=== PATIENT | female | born 1950 | race Caucasian/White ===

== ENCOUNTER 2021-09-21 19:59 | Inpatient (IN) | payer MEDICARE ==
[2021-09-21 20:18] VITALS: BMI 35.8
[2021-09-21] MEDS ORDERED: Loperamide HCl 2 MG CAP PO PRN ×2 (21:23)
[2021-09-21] MEDS ORDERED: Ondansetron PF 4 MG/2 ML Vial IVP PRN (21:23)
[2021-09-21] MEDS ORDERED: Acetaminophen 650 MG Suppository PR PRN (21:23)
[2021-09-21] MEDS ORDERED: Acetaminophen 325 MG TAB PO PRN (21:23)
[2021-09-21] MEDS ORDERED: Ondansetron ODT 4 MG TAB PO PRN (21:23)
[2021-09-21] MEDS ORDERED: HumaLOG 300 UNITS/3 ML VIAL SC PRN (21:27)
[2021-09-21] MEDS ORDERED: Dextrose 5% in Water 1,000 ML IV PRN (21:27)
[2021-09-21] MEDS ORDERED: Dextrose 50% Abboject 50 ML SYRINGE SLOW IVP PRN (21:27)
[2021-09-21] MEDS ORDERED: Apixaban 5 MG TAB PO SCH (21:45)
[2021-09-21] MEDS ORDERED: Famotidine 20 MG TAB PO SCH (21:45)
[2021-09-22] MEDS ORDERED: Diltiazem 125 MG in Sodium Chloride 0.9% 100 ML IVPB SCH (02:30)
[2021-09-22 05:12] LABS: Hemoglobin 15.3 g/dL (12.0-15.5); Mean Corpuscular HGB CONC 33.3 g/dL (32.0-36.0); Mean Corpuscular Hemoglobin 30.8 pg (27.0-33.0); Mean Corpuscular Volume 92.5 fl (81.6-98.3); Mean Platelet Volume 10.4 fl (7.4-10.4); Platelet Count 224 10x3/uL (150-450); RBC Distribution Width 13.3 % (11.5-14.5); Red Blood Cell (RBC) Count 4.96 10x6/uL (3.90-5.03); White Blood Cell (WBC) Count 6.6 10x3/uL (3.5-10.5)
[2021-09-22 05:23] LABS: MDiff Complete? YES
[2021-09-22 05:27] LABS: ALT (SGPT) 19 U/L (8-55); AST (SGOT) 20 U/L (5-34); Albumin 3.9 g/dL (3.4-4.8); Alkaline Phosphatase 46 U/L (40-110); Anion Gap 15 mmol/L (10-20); BUN (Urea Nitrogen) 25 mg/dL (9.8-20.1); Bilirubin, Total 0.3 mg/dL (0.2-1.2); Calc. Creatinine Clearance 83 mL/min (70-130); Calcium 8.6 mg/dL (7.8-10.44); Carbon Dioxide 22 mmol/L (23-31); Chloride 107 mmol/L (98-107); Globulin 2.6 g/dL (2.4-3.5); Glucose 119 mg/dL (80-115); Potassium 4.4 mmol/L (3.5-5.1); Protein, Total 6.5 g/dL (5.8-8.1); Sodium 140 mmol/L (136-145)
[2021-09-22 05:34] LABS: Band 2 % (5-11); Eosinophils 4 % (0-10); Lymphocytes 11 % (21-51); Monocytes 10 % (0-10); Neutrophil 65 % (42-75); Reactive Lymphocytes 7 % (0-10)
[2021-09-22 05:35] LABS: Platelet Morphology Comment Appears Adequate
[2021-09-22 05:36] LABS: RBC Morphology Normal
[2021-09-22] MEDS: Apixaban 5 MG TAB PO SCH ×2 (09:21→21:18)
[2021-09-22] MEDS: Famotidine 20 MG TAB PO SCH ×2 (09:21→21:19)
[2021-09-22] MEDS ORDERED: Flecainide 50 MG TAB PO SCH (12:00)
[2021-09-22] MEDS: Carvedilol 12.5 MG TAB PO SCH (17:26)
[2021-09-22] MEDS: metFORMIN 500 MG TAB PO SCH (17:26)
[2021-09-22] MEDS: Flecainide 50 MG TAB PO SCH (21:19)
[2021-09-22] MEDS: Hydroxychloroquine Sulfate 200 MG TAB PO SCH (21:19)
[2021-09-22] MEDS: Simvastatin 10 MG TAB PO SCH (21:19)
[2021-09-23 05:05] LABS: Anion Gap 13 mmol/L (10-20); BUN (Urea Nitrogen) 22 mg/dL (9.8-20.1); Calc. Creatinine Clearance 105 mL/min (70-130); Calcium 8.6 mg/dL (7.8-10.44); Carbon Dioxide 23 mmol/L (23-31); Chloride 107 mmol/L (98-107); Glucose 130 mg/dL (80-115); Magnesium 2.2 mg/dL (1.6-2.6); Potassium 4.1 mmol/L (3.5-5.1); Sodium 139 mmol/L (136-145)
[2021-09-23 05:09] LABS: #Basophils 0.1 10x3/uL (0.0-0.2); #Eosinphils 0.2 10x3/uL (0.0-0.5); #Monocytes 0.8 10x3/uL (0.0-1.1); #Neutrophils 2.6 10x3/uL (1.5-8.4); %Basophils 1.8 % (0.0-2.0); %Eosinophils 3.6 % (0.0-6.0); %Lymphocytes 19.6 % (18.0-47.0); %Monocytes 16.7 % (0.0-10.0); %Neutrophils 57.9 % (40.0-75.0); Hemoglobin 15.3 g/dL (12.0-15.5); Mean Corpuscular Hemoglobin 30.8 pg (27.0-33.0); Mean Corpuscular Volume 93.4 fl (81.6-98.3); Mean Platelet Volume 10.6 fl (7.4-10.4); Platelet Count 201 10x3/uL (150-450); RBC Distribution Width 13.2 % (11.5-14.5); Red Blood Cell (RBC) Count 4.97 10x6/uL (3.90-5.03); White Blood Cell (WBC) Count 4.5 10x3/uL (3.5-10.5)
[2021-09-23] MEDS: Levothyroxine Sodium 75 MCG TAB PO SCH (06:12)
[2021-09-23] MEDS: Levothyroxine Sodium 100 MCG TAB PO SCH (06:12)
[2021-09-23] MEDS: azaTHIOprine 50 MG TAB PO SCH (09:10)
[2021-09-23] MEDS: Apixaban 5 MG TAB PO SCH ×2 (09:17→22:08)
[2021-09-23] MEDS: Famotidine 20 MG TAB PO SCH ×2 (09:17→22:09)
[2021-09-23] MEDS: metFORMIN 500 MG TAB PO SCH ×2 (09:17→18:00)
[2021-09-23] MEDS: Carvedilol 12.5 MG TAB PO SCH ×2 (09:17→18:00)
[2021-09-23] MEDS: Empagliflozin 10 MG TAB PO SCH (09:18)
[2021-09-23] MEDS: Flecainide 50 MG TAB PO SCH ×2 (09:18→22:09)
[2021-09-23] MEDS: Hydroxychloroquine Sulfate 200 MG TAB PO SCH ×2 (09:18→22:09)
[2021-09-23] MEDS: Simvastatin 10 MG TAB PO SCH (22:09)
[2021-09-24 05:49] LABS: #Basophils 0.1 10x3/uL (0.0-0.2); #Eosinphils 0.2 10x3/uL (0.0-0.5); #Monocytes 0.8 10x3/uL (0.0-1.1); #Neutrophils 2.6 10x3/uL (1.5-8.4); %Basophils 1.7 % (0.0-2.0); %Eosinophils 4.6 % (0.0-6.0); %Lymphocytes 22.1 % (18.0-47.0); %Monocytes 16.4 % (0.0-10.0); %Neutrophils 54.6 % (40.0-75.0); Hemoglobin 14.8 g/dL (12.0-15.5); Mean Corpuscular HGB CONC 32.2 g/dL (32.0-36.0); Mean Corpuscular Hemoglobin 30.4 pg (27.0-33.0); Mean Corpuscular Volume 94.3 fl (81.6-98.3); Mean Platelet Volume 10.5 fl (7.4-10.4); Platelet Count 197 10x3/uL (150-450); Red Blood Cell (RBC) Count 4.87 10x6/uL (3.90-5.03); White Blood Cell (WBC) Count 4.8 10x3/uL (3.5-10.5)
[2021-09-24 05:58] LABS: Anion Gap 11 mmol/L (10-20); BUN (Urea Nitrogen) 24 mg/dL (9.8-20.1); Calc. Creatinine Clearance 82 mL/min (70-130); Calcium 8.5 mg/dL (7.8-10.44); Carbon Dioxide 23 mmol/L (23-31); Chloride 109 mmol/L (98-107); Glucose 129 mg/dL (80-115); Magnesium 2.1 mg/dL (1.6-2.6); Potassium 4.4 mmol/L (3.5-5.1); Sodium 139 mmol/L (136-145)
[2021-09-24] MEDS: Levothyroxine Sodium 75 MCG TAB PO SCH (06:14)
[2021-09-24] MEDS: Levothyroxine Sodium 100 MCG TAB PO SCH (06:14)
[2021-09-24] MEDS: Apixaban 5 MG TAB PO SCH (08:25)
[2021-09-24] MEDS: azaTHIOprine 50 MG TAB PO SCH (08:26)
[2021-09-24] MEDS: Carvedilol 12.5 MG TAB PO SCH (08:26)
[2021-09-24] MEDS: metFORMIN 500 MG TAB PO SCH ×2 (08:27→18:00)
[2021-09-24] MEDS: Famotidine 20 MG TAB PO SCH (08:27)
[2021-09-24] MEDS: Flecainide 50 MG TAB PO SCH (08:27)
[2021-09-24] MEDS: Empagliflozin 10 MG TAB PO SCH (08:27)
[2021-09-24] MEDS: Hydroxychloroquine Sulfate 200 MG TAB PO SCH (08:27)
[2021-09-24] MEDS ORDERED: Carvedilol 12.5 MG TAB PO SCH ×2 (12:00→17:00)
[2021-09-24 20:40] VITALS: BP 121/76; TEMP 97.4
== END 2021-09-24 18:00 | disposition home or self-care (01) | DRG 309 ==
LOC: INTOOBSV 19:59 → UNDOADMOB 19:59 → CSHTELE 19:59 → OBSVTOIN 19:59 → CSHTELE 09-22 12:28 → INTOOBSV 09-22 12:28 → OBSVTOIN 09-22 12:28
PROVIDERS: ADMIT Family Medicine; ATTEND Nurse Practitioner Family
DX: I48.91 Unspecified atrial fibrillation (principal); I50.32 Chronic diastolic (congestive) heart failure; M33.90 Dermatopolymyositis, unspecified, organ involvement unspecified; I13.0 Hypertensive heart and chronic kidney disease with heart failure and stage 1 through stage 4 chronic kidney disease, or unspecified chronic kidney disease; E03.9 Hypothyroidism, unspecified; M19.90 Unspecified osteoarthritis, unspecified site; I25.118 Atherosclerotic heart disease of native coronary artery with other forms of angina pectoris; E78.2 Mixed hyperlipidemia; E11.22 Type 2 diabetes mellitus with diabetic chronic kidney disease; N18.2 Chronic kidney disease, stage 2 (mild); Z95.5 Presence of coronary angioplasty implant and graft; Z79.82 Long term (current) use of aspirin; Z79.02 Long term (current) use of antithrombotics/antiplatelets; Z79.84 Long term (current) use of oral hypoglycemic drugs; Z79.899 Other long term (current) drug therapy; Z88.0 Allergy status to penicillin; Z98.890 Other specified postprocedural states
CPT/HCPCS: 36415; 36416; 80048; 80053; 83735; 85025; 93005; 93010; 96374; G0378; J3490; J7500

== ENCOUNTER 2021-11-02 09:27 | Outpatient (CLI) | payer MEDICARE ==
[2021-11-02 10:39] LABS: Hemoglobin 14.3 g/dL (12.0-15.5); Mean Corpuscular HGB CONC 31.8 g/dL (32.0-36.0); Mean Corpuscular Hemoglobin 30.6 pg (27.0-33.0); Mean Corpuscular Volume 96.1 fl (81.6-98.3); Mean Platelet Volume 11.4 fl (7.4-10.4); Platelet Count 206 10x3/uL (150-450); RBC Distribution Width 14.5 % (11.5-14.5); Red Blood Cell (RBC) Count 4.67 10x6/uL (3.90-5.03); White Blood Cell (WBC) Count 4.5 10x3/uL (3.5-10.5)
[2021-11-02 10:58] LABS: PTT 32.2 sec (22.0-33.0); Prothrombin Time 11.1 sec (9.5-12.1)
[2021-11-02 11:15] LABS: ALT (SGPT) 8 U/L (8-55); AST (SGOT) 16 U/L (5-34); Albumin 4.1 g/dL (3.4-4.8); Alkaline Phosphatase 49 U/L (40-110); Anion Gap 15 mmol/L (10-20); BUN (Urea Nitrogen) 17 mg/dL (9.8-20.1); Bilirubin, Total 0.6 mg/dL (0.2-1.2); Calc. Creatinine Clearance 0 mL/min (70-130); Calcium 9.3 mg/dL (7.8-10.44); Carbon Dioxide 24 mmol/L (23-31); Chloride 107 mmol/L (98-107); Globulin 2.5 g/dL (2.4-3.5); Glucose 102 mg/dL (80-115); Magnesium 2.1 mg/dL (1.6-2.6); Potassium 4.9 mmol/L (3.5-5.1); Protein, Total 6.6 g/dL (5.8-8.1); Sodium 141 mmol/L (136-145)
[2021-11-03 12:47] LABS: SARS-CoV-2 PCR by NAA Not Detected (NotDetected)
== END 2021-11-02 09:28 | disposition home or self-care (01) ==
LOC: CSHLAB 09:27
PROVIDERS: ATTEND Specialist
DX: Z01.812 Encounter for preprocedural laboratory examination (principal); Z20.822 Contact with and (suspected) exposure to COVID-19; I48.91 Unspecified atrial fibrillation
CPT/HCPCS: 80053; 83735; 85027; 85610; 85730; U0003; U0005

== ENCOUNTER → 2021-11-05 | Day surgery (SDC) | payer MEDICARE ==
[~2021-11-05] MED LIST: PROPOFOL 20 ML ONE
== END ==
LOC: CSHSDC 09:37
PROVIDERS: ATTEND Specialist
DX: I48.0 Paroxysmal atrial fibrillation (principal); I25.10 Atherosclerotic heart disease of native coronary artery without angina pectoris; E78.2 Mixed hyperlipidemia; E11.9 Type 2 diabetes mellitus without complications; I11.0 Hypertensive heart disease with heart failure; I50.32 Chronic diastolic (congestive) heart failure; Z79.899 Other long term (current) drug therapy; Z79.01 Long term (current) use of anticoagulants; E03.9 Hypothyroidism, unspecified; Z86.19 Personal history of other infectious and parasitic diseases; Z79.84 Long term (current) use of oral hypoglycemic drugs; Z79.82 Long term (current) use of aspirin
CPT/HCPCS: 92960; 93005; 93010; J2704

== ENCOUNTER 2021-11-09 21:25 | Emergency (ER) | payer MEDICARE ==
[2021-11-09 22:17] LABS: #Eosinphils 0.1 10x3/uL (0.0-0.5); #Monocytes 0.6 10x3/uL (0.0-1.1); #Neutrophils 2.7 10x3/uL (1.5-8.4); %Eosinophils 2.2 % (0.0-6.0); %Lymphocytes 15.8 % (18.0-47.0); %Monocytes 14.3 % (0.0-10.0); %Neutrophils 66.2 % (40.0-75.0); Hemoglobin 13.4 g/dL (12.0-15.5); Mean Corpuscular HGB CONC 31.8 g/dL (32.0-36.0); Mean Corpuscular Volume 94.2 fl (81.6-98.3); Platelet Count 185 10x3/uL (150-450); RBC Distribution Width 14.4 % (11.5-14.5); Red Blood Cell (RBC) Count 4.47 10x6/uL (3.90-5.03); White Blood Cell (WBC) Count 4.1 10x3/uL (3.5-10.5)
[2021-11-09 22:30] LABS: ALT (SGPT) 8 U/L (8-55); AST (SGOT) 16 U/L (5-34); Albumin 4.2 g/dL (3.4-4.8); Alkaline Phosphatase 61 U/L (40-110); Anion Gap 14 mmol/L (10-20); BUN (Urea Nitrogen) 15 mg/dL (9.8-20.1); Bilirubin, Total 0.4 mg/dL (0.2-1.2); Calc. Creatinine Clearance 0 mL/min (70-130); Calcium 9.3 mg/dL (7.8-10.44); Carbon Dioxide 24 mmol/L (23-31); Chloride 108 mmol/L (98-107); Globulin 2.7 g/dL (2.4-3.5); Glucose 142 mg/dL (80-115); Potassium 4.2 mmol/L (3.5-5.1); Protein, Total 6.9 g/dL (5.8-8.1); Sodium 142 mmol/L (136-145)
== END 2021-11-09 23:10 | disposition home or self-care (01) ==
LOC: CSHERS 21:25
DX: R00.2 Palpitations (principal); R06.00 Dyspnea, unspecified; I44.0 Atrioventricular block, first degree; I10 Essential (primary) hypertension; E11.9 Type 2 diabetes mellitus without complications; I48.91 Unspecified atrial fibrillation; E03.9 Hypothyroidism, unspecified; Z79.01 Long term (current) use of anticoagulants; Z79.84 Long term (current) use of oral hypoglycemic drugs; Z79.890 Hormone replacement therapy; Z79.899 Other long term (current) drug therapy
CPT/HCPCS: 71045; 80053; 83880; 84484; 85025; 93005

== ENCOUNTER 2022-03-28 10:52 | Outpatient (CLI) | payer MEDICARE ==
[2022-03-28 13:22] LABS: Hemoglobin 14.2 g/dL (12.0-15.5); Mean Corpuscular HGB CONC 32.9 g/dL (32.0-36.0); Mean Corpuscular Hemoglobin 31.3 pg (27.0-33.0); Mean Corpuscular Volume 95.1 fl (81.6-98.3); Mean Platelet Volume 11.3 fl (7.4-10.4); Platelet Count 201 10x3/uL (150-450); Red Blood Cell (RBC) Count 4.53 10x6/uL (3.90-5.03); White Blood Cell (WBC) Count 4.1 10x3/uL (3.5-10.5)
[2022-03-28 13:31] LABS: Anion Gap 16 mmol/L (10-20); BUN (Urea Nitrogen) 15 mg/dL (9.8-20.1); Calc. Creatinine Clearance 0 mL/min (70-130); Calcium 9.4 mg/dL (7.8-10.44); Carbon Dioxide 24 mmol/L (23-31); Chloride 105 mmol/L (98-107); Glucose 107 mg/dL (80-115); Potassium 4.9 mmol/L (3.5-5.1); Sodium 140 mmol/L (136-145)
== END 2022-03-28 10:53 | disposition home or self-care (01) ==
LOC: CSHLAB 10:52
PROVIDERS: ATTEND Surgery
DX: Z01.818 Encounter for other preprocedural examination (principal); Z20.822 Contact with and (suspected) exposure to COVID-19; K60.3 Anal fistula
CPT/HCPCS: 80048; 85027; 93005; 93010; U0003; U0005

== ENCOUNTER 2022-03-31 09:08 | Day surgery (SDC) | payer MEDICARE ==
[2022-03-28 14:57] VITALS: BMI 36.8
[~2022-03-31 09:08] MED LIST changes: +Bupivacaine PF 0.5% 30 ML VIAL ONE; +EPINEPHrine 1 MG/ML AMP ONE; +Lidocaine 2% Jelly 5 ML TUBE ONE; +Lidocaine 4% PF 5 ML AMP ONE; -PROPOFOL 20 ML ONE
[2022-03-31] MEDS ORDERED: Clindamycin/D5W 600 MG in Premix Bag 1 BAG IVPB SCH (09:30)
[2022-03-31] MEDS ORDERED: Lidocaine 1% MPF 2 ML VIAL ONE (09:38)
[2022-03-31] MEDS ORDERED: PROPOFOL 20 ML ONE (10:14)
[2022-03-31] MEDS ORDERED: Dexamethasone 4 mg/ml Vial ONE (10:15)
[2022-03-31] MEDS ORDERED: Ondansetron PF 4 MG/2 ML Vial ONE (10:15)
[2022-03-31] MEDS ORDERED: Lidocaine 1% PF 5 ML VIAL ONE (10:15)
[2022-03-31] MEDS ORDERED: HYDROcodone/Acetaminophen 5/325 mg Tablet PO PRN (10:27)
[2022-03-31] MEDS ORDERED: Acetaminophen 325 MG TAB PO PRN (10:27)
[2022-03-31] MEDS ORDERED: Fentanyl 100 MCG/2 ML VIAL ONE (10:32)
== END 2022-03-31 13:00 | disposition home or self-care (01) ==
LOC: CSHSDC 09:08
PROVIDERS: ATTEND Surgery
PROC: 0DBQ7ZZ Excision of Anus, Via Natural or Artificial Opening (ICD-10-PCS; principal; 2022-03-31)
DX: K60.3 Anal fistula (principal); N81.6 Rectocele; Z79.84 Long term (current) use of oral hypoglycemic drugs; Z79.890 Hormone replacement therapy; Z79.899 Other long term (current) drug therapy; Z88.0 Allergy status to penicillin; Z88.8 Allergy status to other drugs, medicaments and biological substances
CPT/HCPCS: J0171; J1100; J2405; J2704; J3010; J3490; S0020

== ENCOUNTER 2022-10-14 18:28 | Emergency (ER) | payer MEDICARE ==
[~2022-10-14 18:28] MED LIST changes: -Bupivacaine PF 0.5% 30 ML VIAL ONE; -EPINEPHrine 1 MG/ML AMP ONE; +Iopamidol 370 76% 100 ML VIAL ONE; -Lidocaine 2% Jelly 5 ML TUBE ONE; -Lidocaine 4% PF 5 ML AMP ONE
[2022-10-14 19:38] LABS: #Basophils 0.1 10x3/uL (0.0-0.2); #Eosinphils 0.1 10x3/uL (0.0-0.5); #Monocytes 0.7 10x3/uL (0.0-1.1); %Basophils 1.1 % (0.0-2.0); %Eosinophils 2.8 % (0.0-6.0); %Lymphocytes 15.8 % (18.0-47.0); %Neutrophils 65.4 % (40.0-75.0); Hemoglobin 14.3 g/dL (12.0-15.5); Mean Corpuscular HGB CONC 34.6 g/dL (32.0-36.0); Mean Corpuscular Hemoglobin 31.4 pg (27.0-33.0); Mean Corpuscular Volume 90.6 fl (81.6-98.3); Mean Platelet Volume 10.6 fl (7.4-10.4); Platelet Count 194 10x3/uL (150-450); RBC Distribution Width 13.6 % (11.5-14.5); Red Blood Cell (RBC) Count 4.56 10x6/uL (3.90-5.03); White Blood Cell (WBC) Count 4.6 10x3/uL (3.5-10.5)
[2022-10-14] MEDS ORDERED: Famotidine/PF 20 mg/2ml Vial ONE (19:39)
[2022-10-14] MEDS ORDERED: methylPREDNISolone Sod Succ/PF 125 MG/2 ML VIAL ONE (19:39)
[2022-10-14] MEDS ORDERED: diphenhydrAMINE 50 MG/ML VIAL ONE (19:39)
[2022-10-14 19:51] LABS: ALT (SGPT) 11 U/L (8-55); AST (SGOT) 20 U/L (5-34); Albumin 4.3 g/dL (3.4-4.8); Alkaline Phosphatase 53 U/L (40-110); Anion Gap 14 mmol/L (10-20); BUN (Urea Nitrogen) 15 mg/dL (9.8-20.1); Bilirubin, Total 0.9 mg/dL (0.2-1.2); Calc. Creatinine Clearance 0 mL/min (70-130); Calcium 9.1 mg/dL (7.8-10.44); Carbon Dioxide 21 mmol/L (23-31); Chloride 106 mmol/L (98-107); Estimated GFR 72; Globulin 2.5 g/dL (2.4-3.5); Glucose 103 mg/dL (83-110); Potassium 4.2 mmol/L (3.5-5.1); Protein, Total 6.8 g/dL (5.8-8.1); Sodium 137 mmol/L (136-145)
== END 2022-10-14 22:11 | disposition home or self-care (01) ==
LOC: CSHERS 18:28
DX: I10 Essential (primary) hypertension (principal); E03.9 Hypothyroidism, unspecified; E11.9 Type 2 diabetes mellitus without complications
CPT/HCPCS: 71045; 71275; 80053; 83880; 84484; 85025; 93005; 96374; 96375; J1200; J2930; S0028

== ENCOUNTER 2022-10-16 18:51 | Inpatient (IN) | payer MEDICARE ==
[2022-10-16 19:36] LABS: #Basophils 0.1 10x3/uL (0.0-0.2); #Eosinphils 0.1 10x3/uL (0.0-0.5); #Monocytes 0.8 10x3/uL (0.0-1.1); #Neutrophils 3.5 10x3/uL (1.5-8.4); %Basophils 1.1 % (0.0-2.0); %Eosinophils 1.1 % (0.0-6.0); %Lymphocytes 18.5 % (18.0-47.0); %Monocytes 14.9 % (0.0-10.0); %Neutrophils 64.2 % (40.0-75.0); Hemoglobin 15.8 g/dL (12.0-15.5); Mean Corpuscular HGB CONC 34.4 g/dL (32.0-36.0); Mean Corpuscular Hemoglobin 30.9 pg (27.0-33.0); Mean Corpuscular Volume 89.8 fl (81.6-98.3); Mean Platelet Volume 11.3 fl (7.4-10.4); Platelet Count 208 10x3/uL (150-450); RBC Distribution Width 13.6 % (11.5-14.5); Red Blood Cell (RBC) Count 5.11 10x6/uL (3.90-5.03); White Blood Cell (WBC) Count 5.5 10x3/uL (3.5-10.5)
[2022-10-16] MEDS ORDERED: Aspirin Chewable 81 MG TAB ONE (19:59)
[2022-10-16] MEDS ORDERED: Diltiazem 125 MG in Sodium Chloride 0.9% 100 ML IVPB SCH (20:15)
[2022-10-16 20:34] LABS: ALT (SGPT) 13 U/L (8-55); AST (SGOT) 21 U/L (5-34); Albumin 4.3 g/dL (3.4-4.8); Alkaline Phosphatase 53 U/L (40-110); Anion Gap 17 mmol/L (10-20); BUN (Urea Nitrogen) 18 mg/dL (9.8-20.1); Bilirubin, Total 0.7 mg/dL (0.2-1.2); CK (CPK) 63 U/L (29-168); Calc. Creatinine Clearance 0 mL/min (70-130); Calcium 9.5 mg/dL (7.8-10.44); Carbon Dioxide 18 mmol/L (23-31); Chloride 108 mmol/L (98-107); Estimated GFR 60; Globulin 3.1 g/dL (2.4-3.5); Glucose 112 mg/dL (83-110); Lipase 18 U/L (8-78); Potassium 4.4 mmol/L (3.5-5.1); Protein, Total 7.4 g/dL (5.8-8.1); Sodium 139 mmol/L (136-145)
[2022-10-16] MEDS ORDERED: Diltiazem 125 MG/25 ML ONE (20:49)
[2022-10-16 22:11] LABS: SARS-CoV-2 NAA Rapid Test DETECTED (NotDetected)
[2022-10-16] MEDS ORDERED: Flecainide 50 MG TAB PO SCH (23:45)
[2022-10-16] MEDS ORDERED: Hydroxychloroquine Sulfate 200 MG TAB PO SCH (23:45)
[2022-10-16] MEDS ORDERED: Apixaban 5 MG TAB PO SCH (23:45)
[2022-10-17 00:20] LABS: Cardiac Risk 4.6 (Less than 4.5); Cholesterol 160 mg/dl (< 200 Desired); HDL Cholesterol 35 mg/dL (>60 Neg Risk); LDL Cholesterol, Calculated 93 mg/dL; Magnesium 2.2 mg/dL (1.6-2.6); Triglycerides 162 mg/dL (Less than 150)
[2022-10-17 00:31] LABS: Troponin I Less than 0.010 ng/mL (< 0.028)
[2022-10-17] MEDS ORDERED: Apixaban 5 MG TAB ONE (02:04)
[2022-10-17 03:47] LABS: Hemoglobin 14.7 g/dL (12.0-15.5); Mean Corpuscular HGB CONC 34.2 g/dL (32.0-36.0); Mean Corpuscular Hemoglobin 31.1 pg (27.0-33.0); Mean Corpuscular Volume 90.9 fl (81.6-98.3); Mean Platelet Volume 11.1 fl (7.4-10.4); Platelet Count 205 10x3/uL (150-450); RBC Distribution Width 13.7 % (11.5-14.5); Red Blood Cell (RBC) Count 4.73 10x6/uL (3.90-5.03); White Blood Cell (WBC) Count 4.4 10x3/uL (3.5-10.5)
[2022-10-17 04:00] LABS: Anion Gap 14 mmol/L (10-20); BUN (Urea Nitrogen) 19 mg/dL (9.8-20.1); Calc. Creatinine Clearance 0 mL/min (70-130); Calcium 9.1 mg/dL (7.8-10.44); Carbon Dioxide 18 mmol/L (23-31); Chloride 109 mmol/L (98-107); Estimated GFR 72; Glucose 127 mg/dL (83-110); Sodium 137 mmol/L (136-145)
[2022-10-17 04:03] LABS: MDiff Complete? YES
[2022-10-17 04:11] LABS: Band 2 % (5-11); Eosinophils 3 % (0-10); Lymphocytes 18 % (21-51); Metamyelocyte 1 % (0-0); Monocytes 19 % (0-10); Neutrophil 52 % (42-75); Reactive Lymphocytes 3 % (0-10)
[2022-10-17 04:12] LABS: Platelet Morphology Comment Appears Adequate; RBC Morphology Normal
[2022-10-17] MEDS: Levothyroxine Sodium 100 MCG TAB PO SCH (06:04)
[2022-10-17] MEDS: Levothyroxine Sodium 75 MCG TAB PO SCH (06:04)
[2022-10-17] MEDS: Cholecalciferol 1,000 UNITS (25 MCG) TAB PO SCH ×2 (08:29→20:43)
[2022-10-17] MEDS: Apixaban 5 MG TAB PO SCH ×2 (08:30→20:43)
[2022-10-17] MEDS: Carvedilol 25 MG TAB PO SCH ×2 (08:30→20:43)
[2022-10-17] MEDS: Empagliflozin 10 MG TAB PO SCH (08:31)
[2022-10-17] MEDS: Ubidecarenone 50 MG CAP PO SCH (08:31)
[2022-10-17] MEDS: metFORMIN 500 MG TAB PO SCH (08:31)
[2022-10-17] MEDS: Amlodipine 5 MG TAB PO SCH (08:32)
[2022-10-17] MEDS: Ascorbic Acid 500 mg Chewable Tablet PO SCH (08:32)
[2022-10-17] MEDS: Hydroxychloroquine Sulfate 200 MG TAB PO SCH ×2 (08:32→20:42)
[2022-10-17] MEDS ORDERED: LUTEIN 6 MG PO SCH (09:00)
[2022-10-17] MEDS ORDERED: VITAMIN E MIXED 1000 UNIT PO SCH (09:00)
[2022-10-17] MEDS ORDERED: Non-Formulary Medication 1 EACH (Levothyroxine Sodium [Levothyroxine] 175 MCG Capsule) PO SCH (09:00)
[2022-10-17] MEDS ORDERED: Aspirin 81 mg Enteric Coated Tablet PO SCH (09:00)
[2022-10-17] MEDS ORDERED: GLUCOSAMINE HCL 500 MG PO SCH (09:00)
[2022-10-17] MEDS: Stress 600 With Zinc 1 TAB PO SCH (09:19)
[2022-10-17] MEDS: azaTHIOprine 50 MG TAB PO SCH (09:21)
[2022-10-17] MEDS: Fish Oil 1,000 MG CAP PO SCH ×2 (09:21→20:42)
[2022-10-17] MEDS: Flecainide 50 MG TAB PO SCH ×2 (09:24→20:42)
[2022-10-17] MEDS ORDERED: FLU VACC QS2022-23(65YR UP)/PF 240 MCG/0.7 ML SYRINGE IM ONE (09:30)
[2022-10-17] MEDS ORDERED: Diltiazem 125 MG in Sodium Chloride 0.9% 100 ML IVPB SCH (09:45)
[2022-10-17] MEDS: Simvastatin 10 MG TAB PO SCH (20:42)
[2022-10-17] MEDS: Acetaminophen 325 MG TAB PO PRN (21:27)
[2022-10-18 04:58] LABS: Anion Gap 16 mmol/L (10-20); BUN (Urea Nitrogen) 21 mg/dL (9.8-20.1); Calc. Creatinine Clearance 107 mL/min (70-130); Calcium 9.2 mg/dL (7.8-10.44); Carbon Dioxide 15 mmol/L (23-31); Chloride 110 mmol/L (98-107); Estimated GFR 74; Glucose 118 mg/dL (83-110); Potassium 4.3 mmol/L (3.5-5.1); Sodium 137 mmol/L (136-145)
[2022-10-18 05:00] LABS: #Basophils 0.1 10x3/uL (0.0-0.2); #Eosinphils 0.1 10x3/uL (0.0-0.5); #Monocytes 0.6 10x3/uL (0.0-1.1); #Neutrophils 1.9 10x3/uL (1.5-8.4); %Basophils 1.8 % (0.0-2.0); %Eosinophils 3.2 % (0.0-6.0); %Lymphocytes 23.8 % (18.0-47.0); %Monocytes 16.1 % (0.0-10.0); %Neutrophils 54.8 % (40.0-75.0); Hemoglobin 15.4 g/dL (12.0-15.5); Mean Corpuscular HGB CONC 34.2 g/dL (32.0-36.0); Mean Corpuscular Hemoglobin 31.3 pg (27.0-33.0); Mean Corpuscular Volume 91.5 fl (81.6-98.3); Mean Platelet Volume 11.2 fl (7.4-10.4); Platelet Count 204 10x3/uL (150-450); RBC Distribution Width 13.5 % (11.5-14.5); Red Blood Cell (RBC) Count 4.92 10x6/uL (3.90-5.03); White Blood Cell (WBC) Count 3.4 10x3/uL (3.5-10.5)
[2022-10-18] MEDS: Levothyroxine Sodium 75 MCG TAB PO SCH (05:24)
[2022-10-18] MEDS: Levothyroxine Sodium 100 MCG TAB PO SCH (05:24)
[2022-10-18] MEDS: Acetaminophen 325 MG TAB PO PRN ×4 (05:34→22:31)
[2022-10-18 05:47] LABS: Eosinophils 4 % (0-10); Lymphocytes 24 % (21-51); Monocytes 16 % (0-10)
[2022-10-18 05:48] LABS: Diff Comment (RBC Morph SCRN) NORMAL; Neutrophil 56 % (42-75); Platelet Morphology Comment Appears Adequate
[2022-10-18] MEDS: Carvedilol 25 MG TAB PO SCH ×2 (08:22→21:19)
[2022-10-18] MEDS: Cholecalciferol 1,000 UNITS (25 MCG) TAB PO SCH ×2 (08:22→21:20)
[2022-10-18] MEDS: Ubidecarenone 50 MG CAP PO SCH (08:22)
[2022-10-18] MEDS: Ascorbic Acid 500 mg Chewable Tablet PO SCH (08:23)
[2022-10-18] MEDS: Empagliflozin 10 MG TAB PO SCH (08:23)
[2022-10-18] MEDS: Amlodipine 5 MG TAB PO SCH (08:23)
[2022-10-18] MEDS: metFORMIN 500 MG TAB PO SCH (08:23)
[2022-10-18] MEDS: Fish Oil 1,000 MG CAP PO SCH ×2 (08:24→21:19)
[2022-10-18] MEDS: Apixaban 5 MG TAB PO SCH ×2 (08:24→21:19)
[2022-10-18] MEDS: Flecainide 50 MG TAB PO SCH ×2 (08:24→21:19)
[2022-10-18] MEDS: Hydroxychloroquine Sulfate 200 MG TAB PO SCH ×2 (08:24→21:19)
[2022-10-18] MEDS: azaTHIOprine 50 MG TAB PO SCH (08:25)
[2022-10-18] MEDS: Stress 600 With Zinc 1 TAB PO SCH (09:43)
[2022-10-18 14:40] LABS: Anion Gap 17 mmol/L (10-20); BUN (Urea Nitrogen) 22 mg/dL (9.8-20.1); Calc. Creatinine Clearance 97 mL/min (70-130); Calcium 9.2 mg/dL (7.8-10.44); Carbon Dioxide 19 mmol/L (23-31); Chloride 107 mmol/L (98-107); Estimated GFR 67; Glucose 138 mg/dL (83-110); Potassium 4.9 mmol/L (3.5-5.1); Sodium 138 mmol/L (136-145)
[2022-10-18] MEDS: Simvastatin 10 MG TAB PO SCH (21:19)
[2022-10-19 03:30] LABS: #Basophils 0.1 10x3/uL (0.0-0.2); #Eosinphils 0.2 10x3/uL (0.0-0.5); #Monocytes 0.7 10x3/uL (0.0-1.1); #Neutrophils 2.2 10x3/uL (1.5-8.4); %Basophils 1.5 % (0.0-2.0); %Eosinophils 4.9 % (0.0-6.0); %Monocytes 16.3 % (0.0-10.0); %Neutrophils 54.8 % (40.0-75.0); Mean Corpuscular HGB CONC 33.7 g/dL (32.0-36.0); Mean Corpuscular Hemoglobin 30.9 pg (27.0-33.0); Mean Corpuscular Volume 91.8 fl (81.6-98.3); Mean Platelet Volume 10.7 fl (7.4-10.4); Platelet Count 208 10x3/uL (150-450); RBC Distribution Width 13.5 % (11.5-14.5); Red Blood Cell (RBC) Count 4.85 10x6/uL (3.90-5.03); White Blood Cell (WBC) Count 4.1 10x3/uL (3.5-10.5)
[2022-10-19 03:47] LABS: Anion Gap 15 mmol/L (10-20); BUN (Urea Nitrogen) 21 mg/dL (9.8-20.1); Calc. Creatinine Clearance 97 mL/min (70-130); Calcium 9.2 mg/dL (7.8-10.44); Carbon Dioxide 21 mmol/L (23-31); Chloride 108 mmol/L (98-107); Estimated GFR 67; Glucose 119 mg/dL (83-110); Potassium 4.5 mmol/L (3.5-5.1); Sodium 139 mmol/L (136-145)
[2022-10-19 05:15] LABS: Eosinophils 1 % (0-10); Lymphocytes 17 % (21-51); Reactive Lymphocytes 2 % (0-10)
[2022-10-19 05:16] LABS: Monocytes 12 % (0-10)
[2022-10-19 05:19] LABS: Diff Comment (RBC Morph SCRN) NORMAL; Neutrophil 68 % (42-75); Platelet Morphology Comment Appears Adequate
[2022-10-19] MEDS: Levothyroxine Sodium 100 MCG TAB PO SCH (05:19)
[2022-10-19] MEDS: Levothyroxine Sodium 75 MCG TAB PO SCH (05:19)
[2022-10-19] MEDS: Hydroxychloroquine Sulfate 200 MG TAB PO SCH ×2 (08:03→21:19)
[2022-10-19] MEDS: Cholecalciferol 1,000 UNITS (25 MCG) TAB PO SCH ×2 (08:03→21:19)
[2022-10-19] MEDS: Empagliflozin 10 MG TAB PO SCH (08:03)
[2022-10-19] MEDS: Ubidecarenone 50 MG CAP PO SCH (08:03)
[2022-10-19] MEDS: Carvedilol 25 MG TAB PO SCH ×2 (08:03→21:19)
[2022-10-19] MEDS: metFORMIN 500 MG TAB PO SCH (08:03)
[2022-10-19] MEDS: Apixaban 5 MG TAB PO SCH ×2 (08:03→21:19)
[2022-10-19] MEDS: Ascorbic Acid 500 mg Chewable Tablet PO SCH (08:03)
[2022-10-19] MEDS: Flecainide 50 MG TAB PO SCH ×2 (08:04→21:18)
[2022-10-19] MEDS: Amlodipine 5 MG TAB PO SCH (08:04)
[2022-10-19] MEDS: Fish Oil 1,000 MG CAP PO SCH ×2 (08:04→21:18)
[2022-10-19] MEDS: Stress 600 With Zinc 1 TAB PO SCH (08:04)
[2022-10-19] MEDS: azaTHIOprine 50 MG TAB PO SCH (08:04)
[2022-10-19] MEDS: Acetaminophen 325 MG TAB PO PRN ×2 (08:05→21:19)
[2022-10-19] MEDS ORDERED: Digoxin 0.25 MG TAB PO SCH (12:45)
[2022-10-19] MEDS: Simvastatin 10 MG TAB PO SCH (21:20)
[2022-10-20 04:16] LABS: Hemoglobin 15.1 g/dL (12.0-15.5); Mean Corpuscular HGB CONC 33.8 g/dL (32.0-36.0); Mean Corpuscular Hemoglobin 30.8 pg (27.0-33.0); Mean Corpuscular Volume 91.2 fl (81.6-98.3); Mean Platelet Volume 11.4 fl (7.4-10.4); Platelet Count 210 10x3/uL (150-450); RBC Distribution Width 13.6 % (11.5-14.5); White Blood Cell (WBC) Count 4.3 10x3/uL (3.5-10.5)
[2022-10-20 04:33] LABS: MDiff Complete? YES
[2022-10-20 04:43] LABS: Anion Gap 12 mmol/L (10-20); BUN (Urea Nitrogen) 19 mg/dL (9.8-20.1); Calc. Creatinine Clearance 108 mL/min (70-130); Calcium 9.2 mg/dL (7.8-10.44); Carbon Dioxide 22 mmol/L (23-31); Chloride 107 mmol/L (98-107); Estimated GFR 75; Glucose 115 mg/dL (83-110); Magnesium 2.1 mg/dL (1.6-2.6); Potassium 4.5 mmol/L (3.5-5.1); Sodium 136 mmol/L (136-145)
[2022-10-20 05:08] LABS: Eosinophils 4 % (0-10); Lymphocytes 23 % (21-51); Monocytes 14 % (0-10); Neutrophil 58 % (42-75)
[2022-10-20 05:10] LABS: Platelet Morphology Comment Appears Adequate; RBC Morphology Normal
[2022-10-20] MEDS: Levothyroxine Sodium 100 MCG TAB PO SCH (06:01)
[2022-10-20] MEDS: Levothyroxine Sodium 75 MCG TAB PO SCH (06:01)
[2022-10-20] MEDS: metFORMIN 500 MG TAB PO SCH (08:14)
[2022-10-20] MEDS: Cholecalciferol 1,000 UNITS (25 MCG) TAB PO SCH ×2 (08:14→20:30)
[2022-10-20] MEDS: Apixaban 5 MG TAB PO SCH ×2 (08:14→20:29)
[2022-10-20] MEDS: Ascorbic Acid 500 mg Chewable Tablet PO SCH (08:14)
[2022-10-20] MEDS: Amlodipine 5 MG TAB PO SCH ×2 (08:14→11:13)
[2022-10-20] MEDS: Empagliflozin 10 MG TAB PO SCH (08:14)
[2022-10-20] MEDS: Ubidecarenone 50 MG CAP PO SCH (08:14)
[2022-10-20] MEDS: Stress 600 With Zinc 1 TAB PO SCH (08:15)
[2022-10-20] MEDS: Carvedilol 25 MG TAB PO SCH ×2 (08:15→20:29)
[2022-10-20] MEDS: Hydroxychloroquine Sulfate 200 MG TAB PO SCH ×2 (08:15→20:29)
[2022-10-20] MEDS: Flecainide 50 MG TAB PO SCH ×2 (08:16→20:29)
[2022-10-20] MEDS: azaTHIOprine 50 MG TAB PO SCH (08:16)
[2022-10-20] MEDS: Fish Oil 1,000 MG CAP PO SCH ×2 (08:16→20:29)
[2022-10-20] MEDS ORDERED: Digoxin 0.25 MG TAB PO SCH (09:00)
[2022-10-20] MEDS ORDERED: Polyethylene Glycol 3350 17 GM Packet PO PRN (10:42)
[2022-10-20] MEDS ORDERED: Docusate 100 MG CAP PO PRN (10:42)
[2022-10-20] MEDS: Simvastatin 10 MG TAB PO SCH (20:29)
[2022-10-21 05:15] LABS: Anion Gap 13 mmol/L (10-20); BUN (Urea Nitrogen) 21 mg/dL (9.8-20.1); Calc. Creatinine Clearance 107 mL/min (70-130); Carbon Dioxide 20 mmol/L (23-31); Chloride 106 mmol/L (98-107); Estimated GFR 74; Glucose 116 mg/dL (83-110); Potassium 4.3 mmol/L (3.5-5.1); Sodium 135 mmol/L (136-145)
[2022-10-21 05:18] LABS: Hemoglobin 14.6 g/dL (12.0-15.5); Mean Corpuscular HGB CONC 34.3 g/dL (32.0-36.0); Mean Corpuscular Hemoglobin 31.4 pg (27.0-33.0); Mean Corpuscular Volume 91.6 fl (81.6-98.3); Mean Platelet Volume 11.5 fl (7.4-10.4); Platelet Count 214 10x3/uL (150-450); RBC Distribution Width 13.9 % (11.5-14.5); Red Blood Cell (RBC) Count 4.65 10x6/uL (3.90-5.03); White Blood Cell (WBC) Count 4.5 10x3/uL (3.5-10.5)
[2022-10-21 06:30] LABS: MDiff Complete? YES
[2022-10-21] MEDS: Levothyroxine Sodium 100 MCG TAB PO SCH (06:32)
[2022-10-21] MEDS: Levothyroxine Sodium 75 MCG TAB PO SCH (06:32)
[2022-10-21 06:44] LABS: Eosinophils 1 % (0-10); Lymphocytes 21 % (21-51); Monocytes 16 % (0-10); Neutrophil 60 % (42-75)
[2022-10-21 06:46] LABS: Platelet Morphology Comment Appears Adequate; RBC Morphology Normal
[2022-10-21] MEDS: Ascorbic Acid 500 mg Chewable Tablet PO SCH (07:49)
[2022-10-21] MEDS: Carvedilol 25 MG TAB PO SCH (07:49)
[2022-10-21] MEDS: Cholecalciferol 1,000 UNITS (25 MCG) TAB PO SCH (07:49)
[2022-10-21] MEDS: Apixaban 5 MG TAB PO SCH (07:49)
[2022-10-21] MEDS: metFORMIN 500 MG TAB PO SCH (07:50)
[2022-10-21] MEDS: azaTHIOprine 50 MG TAB PO SCH (07:50)
[2022-10-21] MEDS: Hydroxychloroquine Sulfate 200 MG TAB PO SCH (07:50)
[2022-10-21] MEDS: Empagliflozin 10 MG TAB PO SCH (07:50)
[2022-10-21] MEDS: Ubidecarenone 50 MG CAP PO SCH (07:50)
[2022-10-21] MEDS: Flecainide 50 MG TAB PO SCH (07:53)
[2022-10-21] MEDS: Fish Oil 1,000 MG CAP PO SCH (07:54)
[2022-10-21] MEDS: Stress 600 With Zinc 1 TAB PO SCH (07:54)
[2022-10-21] MEDS ORDERED: Polyethylene Glycol 3350 17 GM Packet PO SCH (09:00)
[2022-10-21 12:19] VITALS: BP 119/71; TEMP 98
== END 2022-10-21 13:10 | disposition home or self-care (01) | DRG 178 ==
LOC: CSHERS 18:51 → UNDOADMOB 10-17 00:04 → CSHERHOLD 10-17 00:04 → CSHIMCU 10-17 07:20 → OBSVTOIN 10-17 09:39
PROVIDERS: ADMIT Family Medicine; ATTEND Hospitalist
PROC: 8E0ZXY6 Isolation (ICD-10-PCS; principal; 2022-10-17)
DX: U07.1 COVID-19 (principal); E87.20 Acidosis, unspecified; I50.32 Chronic diastolic (congestive) heart failure; M33.90 Dermatopolymyositis, unspecified, organ involvement unspecified; I48.0 Paroxysmal atrial fibrillation; E11.9 Type 2 diabetes mellitus without complications; E03.9 Hypothyroidism, unspecified; K44.9 Diaphragmatic hernia without obstruction or gangrene; E66.9 Obesity, unspecified; I25.118 Atherosclerotic heart disease of native coronary artery with other forms of angina pectoris; E78.2 Mixed hyperlipidemia; I11.0 Hypertensive heart disease with heart failure; Z88.0 Allergy status to penicillin; Z88.8 Allergy status to other drugs, medicaments and biological substances; Z88.1 Allergy status to other antibiotic agents; Z79.899 Other long term (current) drug therapy; Z79.01 Long term (current) use of anticoagulants; Z90.49 Acquired absence of other specified parts of digestive tract; Z98.890 Other specified postprocedural states; Z68.36 Body mass index [BMI] 36.0-36.9, adult; Z95.5 Presence of coronary angioplasty implant and graft; Z79.84 Long term (current) use of oral hypoglycemic drugs
CPT/HCPCS: 36415; 71045; 71275; 80048; 80053; 80061; 82550; 83690; 83735; 83880; 84443; 84484; 85025; 93005; 93010; 96374; 96375; J1200; J2930; J3490; J7500; Q9967; S0028; U0002

== ENCOUNTER 2022-11-10 10:55 | Outpatient (CLI) | payer MEDICARE ==
[2022-11-10 11:53] LABS: Hemoglobin 15.1 g/dL (12.0-15.5); Mean Corpuscular HGB CONC 33.3 g/dL (32.0-36.0); Mean Corpuscular Hemoglobin 31.1 pg (27.0-33.0); Mean Corpuscular Volume 93.4 fl (81.6-98.3); Platelet Count 204 10x3/uL (150-450); RBC Distribution Width 14.5 % (11.5-14.5); Red Blood Cell (RBC) Count 4.86 10x6/uL (3.90-5.03); White Blood Cell (WBC) Count 4.7 10x3/uL (3.5-10.5)
[2022-11-10 12:07] LABS: Prothrombin Time 10.7 sec (9.5-12.1)
[2022-11-10 12:12] LABS: ALT (SGPT) 10 U/L (8-55); AST (SGOT) 17 U/L (5-34); Albumin 4.2 g/dL (3.4-4.8); Alkaline Phosphatase 52 U/L (40-110); Anion Gap 15 mmol/L (10-20); BUN (Urea Nitrogen) 21 mg/dL (9.8-20.1); Bilirubin, Total 0.5 mg/dL (0.2-1.2); Calc. Creatinine Clearance 0 mL/min (70-130); Calcium 9.3 mg/dL (7.8-10.44); Carbon Dioxide 22 mmol/L (23-31); Chloride 107 mmol/L (98-107); Estimated GFR 70; Globulin 2.5 g/dL (2.4-3.5); Glucose 106 mg/dL (83-110); Magnesium 2.2 mg/dL (1.6-2.6); Potassium 4.7 mmol/L (3.5-5.1); Protein, Total 6.7 g/dL (5.8-8.1); Sodium 139 mmol/L (136-145)
== END 2022-11-10 10:56 | disposition home or self-care (01) ==
LOC: CSHLAB 10:55
PROVIDERS: ATTEND Specialist
DX: Z01.812 Encounter for preprocedural laboratory examination (principal); I48.91 Unspecified atrial fibrillation
CPT/HCPCS: 80053; 83735; 85027; 85610

== ENCOUNTER 2022-11-11 09:47 | Day surgery (SDC) | payer MEDICARE ==
[2022-11-11] MEDS ORDERED: PROPOFOL 20 ML ONE (11:07)
[2022-11-11 11:26] VITALS: BP 129/77; TEMP 98.7
== END 2022-11-11 12:48 | disposition home or self-care (01) ==
LOC: CSHSDC 09:47
PROVIDERS: ATTEND Specialist
PROC: 5A2204Z Restoration of Cardiac Rhythm, Single (ICD-10-PCS; principal; 2022-11-11)
DX: I48.0 Paroxysmal atrial fibrillation (principal); E78.00 Pure hypercholesterolemia, unspecified; E11.9 Type 2 diabetes mellitus without complications; I11.0 Hypertensive heart disease with heart failure; I50.9 Heart failure, unspecified; E03.9 Hypothyroidism, unspecified; I25.10 Atherosclerotic heart disease of native coronary artery without angina pectoris; M19.90 Unspecified osteoarthritis, unspecified site; Z79.84 Long term (current) use of oral hypoglycemic drugs; Z79.01 Long term (current) use of anticoagulants; Z79.899 Other long term (current) drug therapy; Z88.0 Allergy status to penicillin; Z88.8 Allergy status to other drugs, medicaments and biological substances
CPT/HCPCS: 92960; 93005; 93010; J2704

== ENCOUNTER 2025-05-23 08:00 | Day surgery (SDC) | payer MEDICARE ==
[2025-05-23 09:24] LABS: #Basophils 0.05 10x3/uL (0.0-0.2); #Eosinophils 0.09 10x3/uL (0.0-0.5); #Monocytes 0.57 10x3/uL (0.0-1.1); #Neutrophils 2.56 10x3/uL (1.5-8.4); %Basophils 1.3 % (0.0-2.0); %Eosinophils 2.4 % (0.0-6.0); %Lymphocytes 13.2 % (18.0-47.0); %Monocytes 15.0 % (0.0-10.0); %Neutrophils 67.6 % (40.0-75.0); Hematocrit 42.5 % (34.9-44.5); Hemoglobin 14.3 g/dL (12.0-15.5); Mean Corpuscular Hemoglobin 31.6 pg (27.0-33.0); Mean Corpuscular Volume 94.0 fL (81.6-98.3); Platelet Count 168 10x3/uL (150-450); Red Blood Cell (RBC) Count 4.52 10x6/uL (3.90-5.03); White Blood Cell (WBC) Count 3.79 10x3/uL (3.5-10.5)
[2025-05-23 09:48] LABS: INR-International Normal Ratio 1.1; Prothrombin Time 12.4 sec (9.5-12.1)
[2025-05-23 09:59] VITALS: BP 129/72; TEMP 97.2
[2025-05-23 10:05] LABS: AST (SGOT) 27 U/L (11-34)
[2025-05-23 10:12] LABS: ALT (SGPT) 17 U/L (Less than 34); Albumin 3.9 g/dL (3.1-4.5); Alkaline Phosphatase 44 U/L (40-110); Anion Gap 18 mmol/L (10-20); BUN (Urea Nitrogen) 21 mg/dL (9.8-20.1); Bilirubin, Total 0.8 mg/dL (0.3-1.2); Calc. Creatinine Clearance 56 mL/min (70-130); Calcium 8.7 mg/dL (7.8-10.44); Carbon Dioxide 17 mmol/L (23-31); Chloride 109 mmol/L (98-107); Globulin 3.4 g/dL (2.4-3.5); Glucose 103 mg/dL (83-110); Magnesium 2.2 mg/dL (1.6-2.6); Potassium 4.5 mmol/L (3.5-5.1); Sodium 139 mmol/L (136-145)
== END 2025-05-23 13:54 | disposition home or self-care (01) ==
LOC: CSHSDC 08:00
PROVIDERS: ATTEND Specialist
PROC: 5A2204Z Restoration of Cardiac Rhythm, Single (ICD-10-PCS; principal; 2025-05-23)
DX: I48.0 Paroxysmal atrial fibrillation (principal); I11.0 Hypertensive heart disease with heart failure; I50.32 Chronic diastolic (congestive) heart failure; E78.2 Mixed hyperlipidemia; R73.03 Prediabetes; Z95.5 Presence of coronary angioplasty implant and graft; Z87.59 Personal history of other complications of pregnancy, childbirth and the puerperium; Z90.710 Acquired absence of both cervix and uterus; Z90.89 Acquired absence of other organs; Z98.890 Other specified postprocedural states; Z91.041 Radiographic dye allergy status; Z88.0 Allergy status to penicillin; Z91.048 Other nonmedicinal substance allergy status; Z79.84 Long term (current) use of oral hypoglycemic drugs; Z79.01 Long term (current) use of anticoagulants; Z79.899 Other long term (current) drug therapy
CPT/HCPCS: 80053; 83735; 85025; 85610; 92960; 93005; 93010